=== PATIENT | female | born 1980 | race Caucasian/White ===

== ENCOUNTER 2020-01-17 16:52 | Emergency (ER) | payer BC, OTHER ==
[~2020-01-17] VITALS: Ht 165.1 cm; Wt 95.0 kg
[2020-01-17] MEDS ORDERED: ALLEGRA ALLERGY60 MG PO (17:08)
[2020-01-17] MEDS ORDERED: EFFEXOR XR75 MG PO (17:08)
--- NOTE | 2020-01-18 20:45 | EKG ---
[facility] [address] [facility] [place], [place] [address] Signed Normal sinus rhythm Normal ECG No previous ECGs available Confirmed by JAZMINE RUCKER DO ([id number]) on 01/18/2020 8:45:35 PM Electronically Signed By: JAZMINE RUCKER DO 01/18/20 2045 PATIENT NAME: PROTER TREVIÑO Electrocardiogram DATE OF : 80 PHYSICIAN: JAZMINE RUCKER DO REPORT #: [id number] REPORT IS CONFIDENTIAL AND NOT TO BE RELEASED WITHOUT AUTHORIZATION
== END 2020-01-17 19:28 | disposition home or self-care (01) ==
LOC: ED 16:52
DX: M25.512 Pain in left shoulder (principal); I10 Essential (primary) hypertension; F32.9 Major depressive disorder, single episode, unspecified; E78.00 Pure hypercholesterolemia, unspecified; Z88.0 Allergy status to penicillin; Z88.1 Allergy status to other antibiotic agents; Z88.8 Allergy status to other drugs, medicaments and biological substances; Z79.899 Other long term (current) drug therapy
CPT/HCPCS: 80048; 80061; 84484; 85025; 85379; 93005; 93010; 99283-25

== ENCOUNTER 2022-12-27 19:27 | Emergency (ER) | payer BC, OTHER ==
[~2022-12-27] VITALS: Ht 165.1 cm; Wt 95.0 kg
[~2022-12-27 19:27] MED LIST: ALLEGRA ALLERGY60 MG PO; EFFEXOR XR75 MG PO
[2022-12-27] MEDS ORDERED: AMLODIPINE BESY10 MG PO (19:44)
[2022-12-27 20:35] LABS: BASOPHILS 0.6 % (0-2); EOSINOPHILS 1.6 % (0-6); HEMATOCRIT 40.6 % (35.0-50.0); HEMOGLOBIN 13.6 g/dL (12.0-18.0); LYMPHOCYTES 38.3 % (24-44); MCH 28.7 (27-36); MCHC 33.6 g/dl (30-36); MCV 85.6 fl (81-99); MONOCYTES 6.2 % (0-12); NEUTROPHILS 53.3 % (39-80); PLATELET COUNT 277 K/uL (140-440); RBC 4.74 M/ul (4.3-5.7)
[2022-12-27 20:53] LABS: ALBUMIN 3.7 g/dL (3.4-5.0); ALBUMIN/GLOBULIN RATIO 1.19 (1.1-2.4); ANION GAP 12.5 (7-21); BILIRUBIN, TOTAL 0.3 ng/dL (0.2-1.0); BUN/CREATININE RATIO 20.65 (6.0-28.6); CALCIUM 9.2 mg/dL (8.5-10.1); CREATININE, SERUM 0.92 mg/dL (0.55-1.02); POTASSIUM 3.5 mmol/L (3.5-5.1); PROTEIN, TOTAL 6.8 g/dL (6.4-8.2)
[2022-12-27] MEDS ORDERED: BENZONATATE100 MG PO (22:09)
[2022-12-27 22:42] VITALS: BP 134/97
== END 2022-12-27 22:46 | disposition home or self-care (01) ==
LOC: ED 19:27
PROVIDERS: Family Medicine
DX: U07.1 COVID-19 (principal); J40 Bronchitis, not specified as acute or chronic; I10 Essential (primary) hypertension; Z88.0 Allergy status to penicillin; Z88.1 Allergy status to other antibiotic agents; Z88.8 Allergy status to other drugs, medicaments and biological substances; Z79.899 Other long term (current) drug therapy
CPT/HCPCS: 36415; 71045; 80053; 85025; 85379; 94640; 99285-25

== ENCOUNTER 2025-02-20 17:01 | Emergency (ER) | payer BC, OTHER ==
[~2025-02-20] VITALS: Ht 165.1 cm; Wt 91.8 kg
--- NOTE | ~2025-02-20 | EKG ---
[facility] [address] [facility] [place], [place] [address] Draft EK completed, results pending confirmation PATIENT NAME: PORTER TREVIÑO Electrocardiogram DATE OF : 80 PHYSICIAN: PRELIMINARY REPORT #: [id number] REPORT IS CONFIDENTIAL AND NOT TO BE RELEASED WITHOUT AUTHORIZATION
[~2025-02-20 17:01] MED LIST changes: +AMLODIPINE BESY10 MG PO; +BENZONATATE100 MG PO
[2025-02-20] MEDS ORDERED: VITAMIN D31250 MC2 PO (18:20)
[2025-02-20] MEDS ORDERED: FOLIC ACID B PO (18:21)
[2025-02-20 18:29] LABS: BASOPHILS 0.5 % (0.1-1.2); EOSINOPHILS 2.4 % (0.7-5.8); LYMPHOCYTES 29.6 % (19.3-51.7); MCH 28.5 PG (25.6-32.2); MCHC 33.3 g/dL (32.2-35.5); MCV 85.6 fL (79.4-94.8); MONOCYTES 6.6 % (4.7-12.5); NEUTROPHILS 60.7 % (34.0-71.1); RBC 5.55 M/uL (3.93-5.22)
[2025-02-20 18:52] LABS: ALT (SGPT) 41.0 U/L (14-59); AST (SGOT) 20.0 U/L (15-37); GLOMERULAR FILTRATION RATE,EST 95.0 mL/min (>60); PROTEIN, TOTAL 7.5 g/dL (6.4-8.2); UREA NITROGEN 16.0 mg/dL (7-18)
[2025-02-20 20:29] LABS: CORONAVIRUS COVID-19 AG NEGATIVE (NEGATIVE)
[2025-02-20] MEDS ORDERED: ACETAMINOPHEN 500 MG TAB PO ONE (21:00)
[2025-02-20] MEDS ORDERED: FAMOTIDINE 20 MG/ 2 ML VIAL IV ONE (22:00)
[2025-02-20 22:20] VITALS: BP 117/78
== END 2025-02-20 22:25 | disposition home or self-care (01) ==
LOC: ED 17:01
PROVIDERS: Emergency Medicine; Internal Medicine
DX: R55 Syncope and collapse (principal); I10 Essential (primary) hypertension; Z88.0 Allergy status to penicillin; Z88.8 Allergy status to other drugs, medicaments and biological substances; Z79.899 Other long term (current) drug therapy
CPT/HCPCS: 36415; 70450; 70486; 80053; 83735; 84484; 84703; 85025; 93005; 93010; 99284-25; A9270